=== PATIENT | female | born 1935 | race Caucasian/White ===

== ENCOUNTER 2017-05-01 09:33 | Emergency (ER) | payer MEDICARE ==
--- NOTE | 2017-05-01 09:42 | Emergency Department Record ---
History of Present Illness - General Chief complaint: Lower Extremity Pain Stated complaint: GROIN PAIN Time Seen by Provider: 05/01/17 09:38 Source: Patient, Family Mode of Arrival: Ambulatory Limitations: No limitations - History of Present Illness Initial comments: 81 yo female presents with right groin pain for one month. She recalls the pain starting after doing gardening work and feeling like a strain. No obvious bulge or swelling. No changes in urination or blood in the urine. No weakness to he RLE. No swelling of the RLE. She is able to ambulate without limitation but she states the pain is fairly constant. No PCP. MD Complaint: Abdominal Pain (Right groin pain) -: Month(s) (1) Location: Right History of Same: Yes -: Yes Arthralgia Radiation: Proximal Quality: Aching Consistency: Constant Improves with: Rest Worsens with: Walking, Weight bearing Associated Symptoms: Denies other symptoms - Related Data Home Medications Medication Instructions Recorded Confirmed Last Taken No Home Med [NO HOME MEDS] 05/01/17 05/01/17 Unknown Allergies Allergy/AdvReac Type Severity Reaction Status Date / Time sulfamethoxazole Allergy Intermediate RASH Verified 05/01/17 09:45 [From Bactrim] tetracycline Allergy Intermediate RASH Verified 05/01/17 09:45 trimethoprim [From Bactrim] Allergy Intermediate RASH Verified 05/01/17 09:45 Review of Systems Constitutional: Denies: Chills, Fever, Malaise, Weakness Eyes: Denies: Eye discharge, Photophobia, Vision change ENT: Denies: Congestion, Throat pain Respiratory: Denies: Cough, Dyspnea, Hemoptysis, Stridor, Wheezes Cardiovascular: Denies: Chest pain, Palpitations, Syncope Endocrine: Denies: Fatigue Gastrointestinal: Reports: As per HPI, Abdominal pain (right groin). Denies: Diarrhea, Nausea, Vomiting Genitourinary: Denies: Hematuria Musculoskeletal: Reports: Arthralgia, Myalgia. Denies: Back pain, Joint swelling, Neck pain Skin: Denies: Bruising, Change in color, Rash Neurological: Denies: Abnormal gait, Confusion, Headache, Numbness, Paresthesias , Tremors, Weakness Psychiatric: Denies: Anxiety Hematological/Lymphatic: Denies: Blood Clots, Easy bleeding, Easy bruising, Swollen glands Physical Exam - General General Appearance: Alert, Oriented x3, Cooperative, No acute distress Limitations: No limitations - Head Head exam: Atraumatic, Normal inspection - Eye Eye exam: Normal appearance, PERRL. negative: Conjunctival injection, Periorbital swelling - ENT ENT exam: Normal exam Ear exam: Normal external inspection Nasal Exam: Normal inspection Mouth exam: Normal external inspection - Neck Neck exam: Normal inspection, Full ROM. negative: Tenderness - Respiratory Respiratory exam: Normal lung sounds bilaterally. negative: Respiratory distress - Cardiovascular Cardiovascular Exam: Regular rate, Normal rhythm, Normal heart sounds Peripheral Pulses: 2+: Dorsalis Pedis (R) - GI/Abdominal GI/Abdominal exam: Soft. negative: Distended, Guarding, Hernia, Hyperactive bowel sounds, Pulsatile mass, Rebound, Rigid, Tenderness - Rectal Rectal exam: Deferred - exam: Deferred - Extremities Extremities exam: Normal inspection, Full ROM, Normal capillary refill, Tenderness. negative: Calf tenderness, Joint swelling, Pedal edema Image of Full Body: 1 - tender right groin with full ROM, pain with internal and external hip rotation, no mass or palpable hernia, no reproducible hernia, no swelling of the thigh, PT and DP pulses intact, no calf swelling. - Back Back exam: Reports: Normal inspection, Full ROM. Denies: CVA tenderness (R), CVA tenderness (L), Muscle spasm, Paraspinal tenderness, Rash noted, Tenderness , Vertebral tenderness - Neurological Neurological exam: Alert, Normal gait, Oriented X3. negative: Abnormal gait, Altered - Psychiatric Psychiatric exam: Normal affect, Normal mood. negative: Agitated, Anxious - Skin Skin exam: Dry, Intact, Normal color, Warm Course - Reevaluation(s) Reevaluation #1: The XR was reviewed by me. Degenerative changes were noted in the right hip. The repeat BP was noted. The patient was given a referral for follow up and recheck. She is asymptomatic with regarding BP. 05/01/17 10:33 Disposition Disposition: Discharge Clinical Impression: Right groin pain Degenerative arthritis of hip Qualifiers: Osteoarthritis type: unspecified Laterality: right Qualified Code(s): M16.11 - Unilateral primary osteoarthritis, right hip Disposition: Home, Self-Care Condition: (1) Good Instructions: Hip Sprain (ED) Additional Instructions: Call for a new doctor You will need a follow up of your hip pain and your blood pressure Return if worse, swelling, redness or any new concerns about your hip/groin pain Rest avoiding over activity if you hip hurts. Tylenol as directed for mild pain. Forms: Patient Portal Access Time of Disposition: 10:35
--- NOTE | 2017-05-01 14:51 | RADIOLOGY REPORT ---
EXAM: RIGHT HIP WITH AP PELVIS HISTORY: RIGHT HIP AND GROIN PAIN FOR A MONTH EVER SINCE SHE INJURED HER HIP STEPPING IN A HOLE IN HER GARDEN. TECHNIQUE: AP view of the pelvis and AP and lateral views of the right hip were obtained. Comparison: None. Encounter: Initial. FINDINGS: Degenerative change of the pubic symphysis. Diffuse osteopenia consistent with osteoporosis. No definite fracture or dislocation of the right hip evident. Minor degenerative arthritis right hip. IMPRESSION: 1. OSTEOPOROSIS. 2. MINOR DEGENERATIVE ARTHRITIS RIGHT HIP. 3. NO FRACTURE OF THE RIGHT HIP EVIDENT. JOB NUMBER: [id number] MTDD
== END 2017-05-01 10:53 | disposition home or self-care (01) ==
LOC: ER 09:33
DX: R10.31 Right lower quadrant pain (principal); M16.11 Unilateral primary osteoarthritis, right hip; R03.0 Elevated blood-pressure reading, without diagnosis of hypertension
CPT/HCPCS: 99283

== ENCOUNTER 2019-12-23 18:56 | Emergency (ER) | payer MEDICARE ==
--- NOTE | 2019-12-23 19:49 | Emergency Department Record ---
History of Present Illness - General Chief Complaint: Ankle/Foot Injury Stated Complaint: FALL INJURY Time Seen by Provider: 12/23/19 19:35 Source: Patient Mode of Arrival: Wheelchair Limitations: No limitations - History of Present Illness Initial Comments: pt stood up from couch then lost balance and fell. she heard her ankle snap Complaint: Ankle injury -: Hour(s) Injury: Ankle: Right Type of Injury: Unknown Place: Home Severity: Moderate Severity scale (1-10): 6 Improves With: Rest Worsens With: Movement Context: Other Associated Symptoms: Snap/pop sensation, Swelling, Able to partially bear weight Treatments Prior to Arrival: Cold therapy - Related Data Allergies Allergy/AdvReac Type Severity Reaction Status Date / Time sulfamethoxazole Allergy Intermediate RASH Unverified 12/23/19 19:33 [From Bactrim] tetracycline Allergy Intermediate RASH Verified 12/23/19 19:33 trimethoprim [From Bactrim] Allergy Intermediate RASH Unverified 12/23/19 19:33 Travel Screening - Travel/Exposure Within Last 30 Days Have you traveled within the last 30 days?: No - Travel Symptoms Symptom Screening: None Review of Systems Reviewed: No additional complaints except as noted below Constitutional: Reports: As per HPI. Denies: Chills, Fever, Malaise, Night sweats, Weakness, Weight change Eyes: Reports: As per HPI. Denies: Eye discharge, Eye pain, Photophobia, Vision change ENT: Reports: As per HPI. Denies: Congestion, Dental pain, Ear pain, Epistaxis, Hearing loss, Throat pain Respiratory: Reports: As per HPI. Denies: Cough, Dyspnea, Hemoptysis, Stridor, Wheezes Cardiovascular: Reports: As per HPI. Denies: Arrhythmia, Chest pain, Dyspnea on exertion, Edema, Murmurs, Orthopnea, Palpitations, Paroxysmal nocturnal dyspnea, Rheumatic Fever, Syncope Endocrine: Reports: As per HPI. Denies: Fatigue, Heat or cold intolerance, Polydipsia, Polyuria Gastrointestinal: Reports: As per HPI. Denies: Abdominal pain, Constipation, Diarrhea, Hematemesis, Hematochezia, Melena, Nausea, Vomiting Genitourinary: Reports: As per HPI. Denies: Abnormal menses, Discharge, Dyspareunia, Dysuria, Frequency, Hematuria, Incontinence, Retention, Urgency Musculoskeletal: Reports: As per HPI. Denies: Arthralgia, Back pain, Gout, J oint swelling, Myalgia, Neck pain Skin: Reports: As per HPI. Denies: Bruising, Change in color, Change in hair/nails, Lesions, Pruritus, Rash Neurological: Reports: As per HPI. Denies: Abnormal gait, Confusion, Headache, Numbness, Paresthesias, Seizure, Tingling, Tremors, Vertigo, Weakness Psychiatric: Reports: As per HPI. Denies: Anxiety, Auditory hallucinations, Depression, Homicidal thoughts, Suicidal thoughts, Visual hallucinations Hematological/Lymphatic: Reports: As per HPI. Denies: Anemia, Blood Clots, Easy bleeding, Easy bruising, Swollen glands Past Medical History - SOCIAL HISTORY Smoking Status: Never smoker Alcohol Use: None Drug Use: None - RESPIRATORY Hx Respiratory Disorders: Yes Hx Pulmonary Embolism: Yes (45 years ago) - CARDIOVASCULAR Hx Cardio Disorders: Yes Hx Irregular Heartbeat: Yes - NEURO Hx Neuro Disorders: No - GI Hx GI Disorders: No - Hx Genitourinary Disorders: Yes Hx UTI: Yes - ENDOCRINE Hx Endocrine Disorders: No - MUSCULOSKELETAL Hx Musculoskeletal Disorders: No - PSYCH Hx Psych Problems: No - HEMATOLOGY/ONCOLOGY Hx Hematology/Oncology Disorders: No Family Medical History Any Significant Family History?: No Physical Exam - General General Appearance: Alert, Oriented x3, Cooperative, Mild distress - Head Head exam: Normal inspection - Eye Eye exam: Normal appearance, PERRL, EOMI Pupils: Normal accommodation - ENT ENT exam: Normal exam, Mucous membranes moist, Normal external ear exam, Normal orophraynx Ear exam: Normal external inspection. negative: External canal tenderness Nasal Exam: Normal inspection. negative: Discharge, Sinus tenderness Mouth exam: Normal external inspection, Tongue normal Teeth exam: Normal inspection. negative: Dental caries Throat exam: Normal inspection. negative: Tonsillar erythema, Tonsillar exudate - Neck Neck exam: Normal inspection, Full ROM. negative: Tenderness - Respiratory Respiratory exam: Normal lung sounds bilaterally. negative: Respiratory distress - Cardiovascular Cardiovascular Exam: Regular rate, Normal rhythm, Normal heart sounds - GI/Abdominal GI/Abdominal exam: Soft, Normal bowel sounds. negative: Tenderness - Rectal Rectal exam: Deferred - exam: Deferred - Extremities Extremities exam: Normal inspection, Full ROM, Normal capillary refill, Tenderness (r ankle) Image of Feet: 1 - tender w swelling and ecchymosis - Back Back exam: Reports: Normal inspection, Full ROM. Denies: Muscle spasm, Rash noted, Tenderness - Neurological Neurological exam: Alert, Normal gait, Oriented X3, Reflexes normal - Psychiatric Psychiatric exam: Normal affect, Normal mood - Skin Skin exam: Dry, Intact, Normal color, Warm Course Vital Signs 12/23/19 19:11 Temperature 97.9 F Pulse Rate [ 88 Left] Respiratory 16 Rate Blood Pressure 183/115 [Left Arm] Pulse Ox 98 Disposition Disposition: Discharge Clinical Impression: Ankle sprain Qualifiers: Encounter type: initial encounter Involved ligament of ankle: unspecified ligam ent Laterality: right Qualified Code(s): S93.401A - Sprain of unspecified ligament of right ankle, initial encounter Disposition: Home, Self-Care Condition: (1) Good Instructions: Ankle Sprain (ED) Additional Instructions: follow up with family doctor. return sooner if worse. ice and elevation Quality - Quality Measures Quality Measures: N/A - Blood Pressure Screening Does Patient Have Any of the Following: Active Dx of HTN Blood Pressure Classification: Hypertensive Reading Systolic Measurement: 148 Diastolic Measurement: 74 Screening for High Blood Pressure: Patient Exclusion, Hx of HTN [[id number]]
--- NOTE | 2019-12-23 19:53 | RADIOLOGY REPORT ---
EXAMINATION: Right Ankle, Complete Minimum Three Views EXAM DATE: 12/23/2019 7:37 PM TECHNIQUE: AP, lateral, and oblique INDICATION: Injury COMPARISON: 06/17/2018 ENCOUNTER: Initial FINDINGS: There is no bone or joint abnormality. IMPRESSION: No findings to suggest acute fractures or dislocations. Dictated by: Sergei Jordan MD on 12/23/2019 7:50 PM. .
== END 2019-12-23 20:13 | disposition home or self-care (01) ==
LOC: ER 18:56
DX: S93.401A Sprain of unspecified ligament of right ankle, initial encounter (principal); W08.XXXA Fall from other furniture, initial encounter; Y92.009 Unspecified place in unspecified non-institutional (private) residence as the place of occurrence of the external cause; I10 Essential (primary) hypertension
CPT/HCPCS: 99283